=== PATIENT | female | born 1960 | race American Indian/Alaskan Native ===

== ENCOUNTER 2016-12-26 15:15 | Inpatient (IN) | payer MEDICAID, SELFPAY ==
[2016-12-26 15:16] VITALS: BMI 24.5
--- NOTE | 2016-12-26 16:00 | ED PDOC ---
HPI: Hypertension/Hypotension Time Seen by Provider: 12/26/16 15:23 Chief Complaint (Nursing): High Blood Pressure Chief Complaint (Provider): High Blood Pressure History Per: Patient History/Exam Limitations: no limitations Additional Complaint(s): 56 y/o female with a past medical history of hypertension, diabetes, hypercholesterolemia, liver disease, and chronic kidney disease who presents to the emergency department after she was sent from the clinic for elevated blood pressure. Reports having a constant, frontal, pressure-like headache since yesterday. Denies focal weakness, chest pain, shortness of breath, leg swelling , blurry vision, nausea, or vomiting. Of note, patient was suppose to start an additional hypertensive medication 2 weeks ago but did not start taking the medications because pharmacy never informed her that it was filled and ready for pick-up. When patient was reevaluated today at the clinic they told here her was hypertensive. PMD: [facility] [place], [place] Past Medical History Reviewed: Historical Data, Nursing Documentation, Vital Signs Vital Signs: Last Vital Signs Temp 96.9 F L 12/26/16 15:16 Pulse 78 12/26/16 15:33 Resp 16 12/26/16 15:16 BP 199/104 H 12/26/16 15:33 Pulse Ox 98 12/26/16 15:16 - Medical History PMH: Anemia, Diabetes, HTN, Hypercholesterolemia, Chronic Kidney Disease, TIA Denies: Hepatitis, HIV, Seizures, Sexually Transmitted Disease Other PMH: Liver diease - Family History Family History: States: Hypertension - Social History Current smoker - smoking cessation education provided: No Alcohol: None Drugs: Denies - Home Medications Home Medications: Ambulatory Orders Medication Instructions Recorded Clopidogrel [Plavix] 75 mg PO DAILY #30 tab 04/20/16 GlipiZIDE [Glucotrol] 10 mg PO DAILY #30 tab 04/20/16 Losartan [Cozaar] 100 mg PO DAILY #30 tab 04/20/16 Metoprolol Tartrate [Lopressor] 50 mg PO BID #60 tab 04/20/16 QUEtiapine [SEROquel] 200 mg PO HS #30 tab 04/20/16 Sertraline [Zoloft] 50 mg PO DAILY #30 tab 04/20/16 Simvastatin 20 mg PO HS #30 tablet 04/20/16 amLODIPine [Norvasc] 10 mg PO DAILY #30 tab 04/20/16 - Allergies Allergies/Adverse Reactions: Allergies Allergy/AdvReac Type Severity Reaction Status Date / Time No Known Allergies Allergy Verified 04/09/16 11:33 Review of Systems ROS Statement: Except As Marked, All Systems Reviewed And Found Negative (As per HPI otherwise negative) Eyes: Negative for: Vision Change (Blurry vision) Cardiovascular: Negative for: Chest Pain Respiratory: Negative for: Shortness of Breath Musculoskeletal: Negative for: Other (No leg swelling) Neurological: Positive for: Headache (Frontal region pressure-like). Negative for: Weakness (No focal weakness) Physical Exam - Reviewed Nursing Documentation Reviewed: Yes Vital Signs Reviewed: Yes - Physical Exam Appears: Positive for: Non-toxic, No Acute Distress Head Exam: Positive for: ATRAUMATIC, NORMOCEPHALIC Skin: Positive for: Warm, Dry Eye Exam: Positive for: EOMI, PERRL ENT: Negative for: Pharyngeal Erythema, Tonsillar Exudate Neck: Positive for: Painless ROM, Supple Cardiovascular/Chest: Positive for: Regular Rate, Rhythm, Chest Non Tender. Negative for: Murmur Respiratory: Positive for: Normal Breath Sounds. Negative for: Wheezing Gastrointestinal/Abdominal: Positive for: Soft. Negative for: Tenderness Back: Positive for: Normal Inspection. Negative for: Decreased ROM Extremity: Positive for: Normal ROM. Negative for: Deformity Lymphatic: Negative for: Adenopathy Neurologic/Psych: Positive for: Alert, Oriented (X3). Negative for: Motor/ Sensory Deficits - Laboratory Results Result Diagrams: 12/28/16 07:00 12/30/16 06:30 - ECG O2 Sat by Pulse Oximetry: 98 (RA) Pulse Ox Interpretation: Normal Medical Decision Making Medical Decision Making: Time: 1555 Initial impression: Hypertension differential includes renal disease, congestive heart failure (CHF), electrolyte abnormality, and accelerated hypertension Initial plan: --EKG --Chemistry and lab work ordered --Urine DIP --Head CT --Reevaluation [address] FINDINGS: HEMORRHAGE: No intracranial hemorrhage. BRAIN: Diffuse atrophy with prominence of the ventricles and sulci noted. No mass effect or edema. Mild scattered white matter hypodensities, which are nonspecific, but often seen with chronic microvascular ischemic disease. Hypodensity re-identified within the left cerebellum. Please note that MRI with diffusion imaging is more sensitive in the detection of acute ischemic event. VENTRICLES: No hydrocephalus. CALVARIUM: Unremarkable. PARANASAL SINUSES: Unremarkable as visualized. No significant inflammatory changes. MASTOID AIR CELLS: Unremarkable as visualized. No inflammatory changes. OTHER FINDINGS: None. IMPRESSION: Generalized atrophy. Nonspecific white matter changes. Left cerebellar hypodensity likely related to encephalomalacia. Persistently elevated BPs in ER. Pt to be hospitalized for uncontrolled hypertension with hypertensive encephalopathy (headache) and early organ dysfunction (renal insufficiency.) [facility] resident. Scribe Attestation: Documented by Vivi Hunt, acting as a scribe for Leatha Paris MD. Provider Scribe Attestation: All medical record entries made by the Scribe were at my direction and personally dictated by me. I have reviewed the chart and agree that the record accurately reflects my personal performance of the history, physical exam, medical decision making, and the department course for this patient. I have also personally directed, reviewed, and agree with the discharge instructions and disposition. Disposition - Clinical Impression Clinical Impression: CKD (chronic kidney disease), Hypertension Counseled Patient/Family Regarding: Studies Performed, Diagnosis - Disposition Disposition Time: 17:00 Condition: GUARDED - Pt Status Changed To: Hospital Disposition Of: Observation - POA Present On Arrival: None
[2016-12-26 16:34] LABS: BASO % 0.6 % (0.0-2.0); EOS # 0.2 K/uL (0.0-0.7); EOS % 2.7 % (0.0-4.0); HEMATOCRIT 24.7 % (34.0-47.0); LYMPH # 1.4 K/uL (1.0-4.3); LYMPH % 21.1 % (20.0-40.0); MEAN CELL VOLUME 86.7 fl (81.0-99.0); MEAN CORPUSCULAR HEMOGLOBIN 29.5 pg (27.0-31.0); MEAN PLATELET VOLUME 7.5 fl (7.2-11.7); MONO # 0.6 K/uL (0.0-0.8); MONO % 9.2 % (0.0-10.0); NEUT # 4.4 K/uL (1.8-7.0); NEUT % 66.4 % (50.0-75.0); NRBC % 0.1 % (0.0-0.0); PARTIAL THROMBOPLASTIN TIME 35.3 Seconds (25.6-37.1); RED CELL DISTRIBUTION WIDTH 14.6 % (11.5-14.5); WHITE BLOOD COUNT 6.6 K/uL (4.8-10.8)
[2016-12-26 16:39] LABS: ALB/GLOB RATIO 0.9 (1.0-2.1); BILIRUBIN,TOTAL 0.4 mg/dl (0.2-1.3); CALCIUM 8.9 mg/dL (8.4-10.2); MAGNESIUM 1.8 MG/DL (1.6-2.3); POTASSIUM 4.7 MMOL/L (3.6-5.0); TOTAL PROTEIN 7.6 G/DL (6.3-8.2)
[2016-12-26 16:50] LABS: TROPONIN I 0.015 ng/mL (0.00-0.120)
[2016-12-26 17:09] LABS: THYROID STIMULATING HORMONE 1.06 mIU/ML (0.46-4.68)
--- NOTE | 2016-12-26 17:13 | CT ---
PROCEDURE: CT HEAD WITHOUT CONTRAST. HISTORY: headache hypertension COMPARISON: Noncontrast head CT performed 04/09/16 TECHNIQUE: Axial computed tomography images were obtained through the head/brain without intravenous contrast. Radiation dose: Total exam DLP = 879.84 mGy-cm. This CT exam was performed using one or more of the following dose reduction techniques: Automated exposure control, adjustment of the mA and/or kV according to patient size, and/or use of iterative reconstruction technique. FINDINGS: HEMORRHAGE: No intracranial hemorrhage. BRAIN: Diffuse atrophy with prominence of the ventricles and sulci noted. No mass effect or edema. Mild scattered white matter hypodensities, which are nonspecific, but often seen with chronic microvascular ischemic disease. Hypodensity re-identified within the left cerebellum. Please note that MRI with diffusion imaging is more sensitive in the detection of acute ischemic event. VENTRICLES: No hydrocephalus. CALVARIUM: Unremarkable. PARANASAL SINUSES: Unremarkable as visualized. No significant inflammatory changes. MASTOID AIR CELLS: Unremarkable as visualized. No inflammatory changes. OTHER FINDINGS: None. IMPRESSION: Generalized atrophy. Nonspecific white matter changes. Left cerebellar hypodensity likely related to encephalomalacia.
[2016-12-26] MEDS ORDERED: Labetalol 5 mg/ml Inj 20ML IVP STA (17:16)
--- NOTE | 2016-12-26 18:19 | RAD ---
HISTORY: hypertension COMPARISON: Chest x-ray performed 06/16/15 TECHNIQUE: Chest, one view. FINDINGS: Examination limited by habitus and hypoinflation. LUNGS: Mild pulmonary venous congestion. No focal consolidation. Please note that chest x-ray has limited sensitivity for the detection of pulmonary masses. PLEURA: No significant pleural effusion identified. No definite pneumothorax . CARDIOVASCULAR: Borderline cardiomegaly. OSSEOUS STRUCTURES: Degenerative changes. VISUALIZED UPPER ABDOMEN: Unremarkable. OTHER FINDINGS: None. IMPRESSION: Examination limited by habitus. Mild pulmonary venous congestion. Borderline cardiomegaly.
--- NOTE | 2016-12-26 19:02 | CP.PCM.HP ---
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 BP at PMD's office was 175/100, and a repeat BP was found to be >200/100. Last week patient was started in Diltiazem 60 mg ER by PMD , but she states she has not been taking the new medication because never picked it up from the pharmacy. Patient states that the headaches started while she was in PCP's office waiting room, located in her forehead, bilateral, no radiating, 5/10, no associated with acute changes in her vision, slurred speech , numbness, tingling or weakness, Cp, SOB or other complains. PMD:Dr. Conner at [facility] PMHx: HTN, NIDDM, TIA, CKD meds: zoloft 100 mg, simvastatin 20 mg, clopidogrel 75 mg, glipizide 5 mg BID, olanzapine 10 mg, losartan 50 mg , Diltiazem ER 60 mg ( prescribed 1 week ago, but pt has not been taking) Allergies: NKDA SHx: C-sections X 2 Social: never smoker, no etoh, no drugs. Lives with her daughter. Daughter gives her all medications as prescribed. ED course: VS:BP: 214/113, afebrile, pulse: 72, RR: 16, O2 sat: 98 PE: Alert, oriented x 3 respiratory: scant fine diffuse rales in both lung bases, no wheezes or rhonchi CV: RRR, normal s1, s2, no murmur abd: soft, non tender, non distended ext: pitting edema 1 +, DP pulses present and B/L Labs:CBC: H/H: 8.4/24.7, Coag panel wnl, CMP: BUN/Cr: 18/1.7, GFR: 31, proBNP: 3390, TSH: wgenl, troponin I x 1 neg EKG:NSR, no acute ST -T wave changes CXR: pulmonary venous congestion and boderline cardiomegaly Head CT: generalized atrophy, no intracraneal hemorrhage Tx: Labetalol 10 mg IV once Present on Admission - Present on Admission Any Indicators Present on Admission: No History of DVT/PE: No History of Uncontrolled Diabetes: No Urinary Catheter: No Decubitus Ulcer Present: No Review of Systems - Review of Systems All systems: reviewed and no additional remarkable complaints except Past Patient History - Infectious Disease Hx of Infectious Diseases: None - Past Medical History & Family History Past Medical History?: Yes - Past Social History Alcohol: None Drugs: Denies - CARDIAC Hx Hypercholesterolemia: Yes Hx Hypertension: Yes - PULMONARY Hx Respiratory Disorders: No Hx Tuberculosis: No - NEUROLOGICAL Hx Seizures: No Hx Transient Ischemic Attacks (TIA): Yes - HEENT Hx HEENT Problems: No - RENAL Hx Chronic Kidney Disease: Yes - ENDOCRINE/METABOLIC Hx Endocrine Disorders: Yes Hx Diabetes Mellitus Type 2: Yes - HEMATOLOGICAL/ONCOLOGICAL Hx Anemia: Yes Hx Human Immunodeficiency Virus (HIV): No - INTEGUMENTARY Hx Dermatological Problems: No - MUSCULOSKELETAL/RHEUMATOLOGICAL Hx Musculoskeletal Disorders: No Hx Falls: No - GASTROINTESTINAL Hx Gastrointestinal Disorders: No - GENITOURINARY/GYNECOLOGICAL Hx Sexually Transmitted Disorders: No - PSYCHIATRIC Hx Psychophysiologic Disorder: Yes Hx Substance Use: No Other/Comment: History of psychosis with auditory hallucinations - SURGICAL HISTORY Hx Surgeries: Yes Hx Section: Yes (x2) Other/Comment: left arm surgery - ANESTHESIA Hx Anesthesia: Yes Hx Anesthesia Reactions: No Hx Malignant Hyperthermia: No Meds Allergies/Adverse Reactions: Allergies Allergy/AdvReac Type Severity Reaction Status Date / Time No Known Allergies Allergy Verified 04/09/16 11:33 Physical Exam - Constitutional Appears: Non-toxic, No Acute Distress - Eye Exam Eye Exam: Normal appearance - ENT Exam ENT Exam: Mucous Membranes Moist - Respiratory Exam Respiratory Exam: Rales (scant, diffuse, fine rales to auscultation of both lung bases), NORMAL BREATHING PATTERN. absent: Decreased Breath Sounds, Rhonchi , Wheezes, Respiratory Distress, Stridor - Cardiovascular Exam Cardiovascular Exam: REGULAR RHYTHM, RRR, +S1, +S2 - GI/Abdominal Exam GI & Abdominal Exam: Normal Bowel Sounds, Soft. absent: Guarding, Rebound, Rigid, Tenderness - Extremities Exam Extremities exam: Positive for: pedal edema (pitting 1 + edema in lower extremities). Negative for: calf tenderness - Back Exam Back exam: NORMAL INSPECTION. absent: CVA tenderness (L), CVA tenderness (R) - Neurological Exam Neurological exam: Alert, Oriented x3 - Psychiatric Exam Psychiatric exam: Normal Affect, Normal Mood - Skin Skin Exam: Dry, Intact, Normal Color Results - Vital Signs Recent Vital Signs: Last Vital Signs Temp 96.9 F L 12/26/16 15:16 Pulse 81 12/26/16 18:11 Resp 18 12/26/16 18:11 BP 192/99 H 12/26/16 18:11 Pulse Ox 100 12/26/16 18:11 - Labs Result Diagrams: 12/26/16 16:20 12/26/16 16:20 Labs: Laboratory Results - last 24 hr 12/26/16 12/26/16 12/26/16 16:20 16:20 16:20 WBC 6.6 RBC 2.85 L Hgb 8.4 L Hct 24.7 L MCV 86.7 MCH 29.5 MCHC 34.0 RDW 14.6 H Plt Count 316 MPV 7.5 Neut % (Auto) 66.4 Lymph % (Auto) 21.1 Lumpkin % (Auto) 9.2 Eos % (Auto) 2.7 Baso % (Auto) 0.6 Neut # 4.4 Lymph # 1.4 Lumpkin # 0.6 Eos # 0.2 Baso # 0.0 PT 10.4 INR 0.9 APTT 35.3 Sodium 144 Potassium 4.7 Chloride 112 H Carbon Dioxide 25 Anion Gap 12 BUN 18 H Creatinine 1.7 H Est GFR ( Amer) 38 Est GFR (Non-Af Amer) 31 Random Glucose 96 Calcium 8.9 Phosphorus 4.0 Magnesium 1.8 Total Bilirubin 0.4 AST 30 ALT 23 Alkaline Phosphatase 100 Troponin I 0.0150 NT-Pro-B Natriuret Pep 3390 H Total Protein 7.6 Albumin 3.7 Globulin 3.9 Albumin/Globulin Ratio 0.9 L TSH 3rd Generation 1.06 Assessment & Plan - Assessment and Plan (Free Text) Assessment: 56 y/o F with h/o HTN, NIDDM type 2, TIA being admitted for symptomatic uncontrolled Hypertension. Plan: Uncontrolled Hypertension -Telemetry -No adherent with antihypertensive treatment -s/p Labetalol 10 mg IV once at ED -careful lowering BP -will resume home losartan 50 mg tomorrow AM ( as per patient and her daughter, she took losartan today morning) -f/u BP -f/u UA -f/u BMP -f/u repeat EKG( patient was cold and shivering at the time of EKG at ED) -f/u Echo -Troponin I x 1 neg -EKG:NSR, no acute ST -T wave changes -CXR: pulmonary venous congestion and boderline cardiomegaly -Head CT: generalized atrophy, no intracraneal hemorrhage Lung Rales and peripheral edema -Boderline Cardiomegaly seen on CXR -Uncontrolled HTN -poss 2/2 mild CHF -pro-BNP 3390/elevated. But we do not have prior test for comparison -will give Furosemide 20 mg IV once -f/u echo -c/w losartan -will consider start CCB or B-serjio -Echo done on 12/2015 showed normal LV and normal EF -Cardio consult if needed Normocytic Anemia -Chronic -could be mixed of nutritional deficiency with anemia of chronic diseases -H/H: 8.4/24.7 -asymptomatic -rect count on 04/12/16 was mildly elevated, will repeat -f/u retic count, CBC AM -Colonoscopy done on 12/09/15 showed diverticulosis, 10 mm non-bleeding polyp in the sigmoid colon. Resected. Recommended repeat colonoscopy in 3 years -Wont do FOBT because recent colonoscopy NIDDM type 2 -last HgbA1C was on 12/19/16: 8.1 -c/w home Glipizide 5 mg PO BID -Random glucose in ED was 96 -heart healthy/ diabetic diet Chronic Kidney Disease -Stage 3 -GFR: 38 DVT prophylaxis -H/H : 8.4/24.7 will hold Heparin for prophylaxis No apparent evidence of active bleeding SCDs for tonight - Date & Time Date: 12/26/16 Time: 18:05
[2016-12-26 23:02] LABS: RBC URINE 10 /hpf (0-3); URINE BACTERIA RARE (<OCC); URINE BILIRUBIN NEGATIVE (NEGATIVE); URINE BLOOD SMALL (NEGATIVE); URINE COLOR COLORLESS (YELLOW); URINE GLUCOSE (UA) 50 mg/dL (Normal); URINE KETONE NEGATIVE (NEGATIVE); URINE LEUKOCYTE ESTERASE NEG Leu/uL (Negative); URINE PROTEIN 100 mg/dL (NEGATIVE); URINE UROBILINOGEN 0.2-1.0 mg/dL (0.2-1.0); WBC URINE < 1 /hpf (0-5)
[2016-12-27 07:55] LABS: HEMATOCRIT 23.5 % (34.0-47.0); MEAN CORPUSCULAR HEMOGLOBIN 29.8 pg (27.0-31.0); MEAN CORPUSCULAR HGB CONC 34.7 g/dL (33.0-37.0); RED CELL DISTRIBUTION WIDTH 14.7 % (11.5-14.5); WHITE BLOOD COUNT 6.5 K/uL (4.8-10.8)
[2016-12-27 08:05] LABS: CALCIUM 8.8 mg/dL (8.4-10.2); POTASSIUM 3.6 MMOL/L (3.6-5.0)
--- NOTE | 2016-12-27 09:14 | CP.PCM.PN ---
Subjective - Date & Time of Evaluation Date of Evaluation: 12/27/16 Time of Evaluation: 07:02 - Subjective Subjective: Eeler/Creole ID: Sally Skelton Patient seen and examined this morning at bedside lying comfortable on bed, no acute overnight overnight events. Patient reports still having frontal headache 5/10, no radiated, she states that she has this same headache when she doesnt sleep well, reports no good sleep last night due to noise in the floor. Denies nausea, vomiting, blurred vision, dizziness, fatigue, chest pain, sob, abdominal pain, tingling, numbness, weakness, slurred speech. No fever, diarrhea or constipation. Objective - Vital Signs/Intake and Output Vital Signs (last 24 hours): Temp Pulse Resp BP Pulse Ox 98.4 F 75 20 172/79 H 95 12/27/16 08:11 12/27/16 08:11 12/27/16 08:11 12/27/16 08:11 12/27/16 08:11 - Medications Medications: Current Medications Atorvastatin Calcium (Lipitor) 10 mg PO HS HARIS Clopidogrel Bisulfate (Plavix) 75 mg PO DAILY HARIS Furosemide (Lasix) 20 mg PO DAILY HARIS Glipizide (Glucotrol) 5 mg PO BID HARIS Losartan Potassium (Cozaar) 50 mg PO DAILY HARIS Losartan Potassium (Cozaar) 100 mg PO DAILY HARIS Olanzapine (Zyprexa) 10 mg PO DAILY HARIS Sertraline HCl (Zoloft) 100 mg PO DAILY HARIS - Labs Labs: 12/27/16 07:15 12/27/16 07:15 PT 10.4 Seconds (9.8-13.1) 12/26/16 16:20 INR 0.9 (0.9-1.2) 12/26/16 16:20 APTT 35.3 Seconds (25.6-37.1) 12/26/16 16:20 - Constitutional Appears: Well, No Acute Distress - Head Exam Head Exam: NORMAL INSPECTION - Eye Exam Eye Exam: EOMI, PERRL. absent: Nystagmus - Neck Exam Neck Exam: Full ROM Additional comments: No JVD, No carotids bruits. - Respiratory Exam Respiratory Exam: NORMAL BREATHING PATTERN. absent: Accessory Muscle Use Additional comments: Faint rales in L lung base. - Cardiovascular Exam Cardiovascular Exam: REGULAR RHYTHM, +S1, +S2 - GI/Abdominal Exam GI & Abdominal Exam: Soft, Normal Bowel Sounds. absent: Tenderness - Extremities Exam Extremities Exam: absent: Calf Tenderness Additional comments: DP pulses + b/l, no pedal edema - Neurological Exam Neurological Exam: Alert, Awake, CN II-XII Intact, Oriented x3 - Psychiatric Exam Psychiatric exam: Normal Affect - Skin Skin Exam: Dry, Intact, Warm Assessment and Plan - Assessment and Plan (Free Text) Assessment: 56 yo F with PMH of HTN, NIDDM type 2, TIA and CKD is admitted for symptomatic uncontrolled Hypertension. Plan: Uncontrolled Hypertension -Patient is on telemetry -Likely secondary hypertension due to creatinine increase more than 30% after ARB administration -No adherent with antihypertensive treatment -Stop Lozartan due to creatinine increase more than 30% -Start amlodipine 5mg PO daily -UA no proteinuria -BMP wnl -Troponin I x 1 neg -repeat EKG -f/u Echo -Renal duplex US ordered -EKG: NSR, no acute ST -T wave changes -CXR: pulmonary venous congestion and boderline cardiomegaly -Head CT: generalized atrophy, no intracraneal hemorrhage Lung Rales and peripheral edema, r/o CHF -Boderline Cardiomegaly seen on CXR -Uncontrolled HTN -pro-BNP 3390/elevated. (No prior test for comparison) -Furosemide 20 mg PO daily -start amlodipine 5mg PO daily -Echo done on 12/2015 showed normal LV and normal EF -f/u echo -Cardio consult if needed Normocytic Anemia -Chronic -unknown etiology -H/H: 8.1/23.5 -asymptomatic -rect count on 04/12/16 was mildly elevated -retic count today wnl -Colonoscopy done on 12/09/15 showed diverticulosis, 10 mm non-bleeding polyp in the sigmoid colon. NIDDM type 2 -last HgbA1C was on 12/19/16- 8.1 -c/w Glipizide 5 mg PO BID -Random glucose 149 -Start insulin sliding scale -heart healthy/ diabetic diet Acute Kidney Injury -BUN/Cr 23/2.3 -GFR: 38 -Nephrology consult appreciated DVT prophylaxis -H/H : 8.4/24.7 -will hold Heparin for prophylaxis -No apparent evidence of active bleeding -SCDs
[2016-12-27] MEDS ORDERED: Dextrose 50% SYRINGE Inj (50 ml) IV PRN (12:28)
[2016-12-27] MEDS ORDERED: Glucagon Recombinant 1 mg Inj IM PRN (12:28)
[2016-12-27] MEDS: Insulin Regular 100 units/ml SC SCH ×2 (16:53→21:42)
--- NOTE | 2016-12-27 17:07 | CARD ---
APPROVED REPORT EXAM: Two-dimensional and M-mode echocardiogram with Doppler and color Doppler. Other Information Quality : GoodRhythm : NSR INDICATION Cardiomyopathy 2D DIMENSIONS IVSd1.35 (0.7-1.1cm)LVDd4.33 (3.9-5.9cm) LVOT Diameter2.12 (1.8-2.4cm)PWd1.43 (0.7-1.1cm) IVSs1.21 (0.8-1.2cm)LVDs3.86 (2.5-4.0cm) FS (%) 10.7 %PWs1.33 (0.8-1.2cm) LVEF (%)45.0 (>50%) M-Mode DIMENSIONS Left Atrium (MM)3.85 (2.5-4.0cm)IVSd1.15 (0.7-1.1cm) Aortic Root2.79 (2.2-3.7cm)LVDd4.94 (4.0-5.6cm) Aortic Cusp Exc.1.97 (1.5-2.0cm)PWd1.21 (0.7-1.1cm) IVSs1.47 cmFS (%) 26 % LVDs3.65 (2.0-3.8cm)PWs1.56 cm Mitral Valve MV E Esjfvpab96.0cm/sMV DECEL [id number] A Rrycdwwa484.5cm/s MV VYK63sbP/A ratio0.8MVA (PHT)4.31cm2 TDI Lateral E' Peak V5.95cm/sMedial E' Peak V3.99cm/sE/Lateral E'16.6 E/Medial E'24.8 Pulmonary Valve PV Peak Eblzrult34.2cm/s LEFT VENTRICLE The left ventricle is normal size. There is borderline concentric left ventricular hypertrophy. The systolic function is mildly impaired. There is mild global hypokinesis of the left ventricle. Transmitral Doppler flow pattern is Grade I-abnormal relaxation pattern. RIGHT VENTRICLE The right ventricle is normal size. There is normal right ventricular wall thickness. The right ventricular systolic function is normal. ATRIA The left atrium size is normal. The right atrium size is normal. AORTIC VALVE The aortic valve is normal in structure. No aortic regurgitation is present. There is no aortic valvular stenosis. MITRAL VALVE The mitral valve is mildly thickened. There is no mitral valve stenosis. There is no mitral valve regurgitation noted. TRICUSPID VALVE The tricuspid valve is normal in structure. There is no tricuspid valve regurgitation noted. PULMONIC VALVE The pulmonary valve is normal in structure. There is no pulmonic valvular regurgitation. GREAT VESSELS The aortic root is normal in size. The IVC is normal in size and collapses >50% with inspiration. PERICARDIAL EFFUSION The pericardium appears normal. <Conclusion> The left ventricle is normal size. There is borderline concentric left ventricular hypertrophy. The systolic function is mildly impaired. There is mild global hypokinesis of the left ventricle. Transmitral Doppler flow pattern is Grade I-abnormal relaxation pattern.
--- NOTE | 2016-12-27 18:10 | CARD ---
APPROVED REPORT EKG Measurement Heart [id number] <Conclusion> Normal sinus rhythm Normal ECG
[2016-12-28] MEDS: Insulin Regular 100 units/ml SC SCH ×4 (07:02→23:21)
[2016-12-28 07:43] LABS: HEMATOCRIT 23.8 % (34.0-47.0); MEAN CELL VOLUME 85.5 fl (81.0-99.0); MEAN CORPUSCULAR HEMOGLOBIN 29.8 pg (27.0-31.0); MEAN CORPUSCULAR HGB CONC 34.9 g/dL (33.0-37.0); RED CELL DISTRIBUTION WIDTH 14.8 % (11.5-14.5); WHITE BLOOD COUNT 6.1 K/uL (4.8-10.8)
[2016-12-28 07:52] LABS: CALCIUM 8.7 mg/dL (8.4-10.2); POTASSIUM 3.7 MMOL/L (3.6-5.0)
--- NOTE | 2016-12-28 09:10 | CP.PCM.CON ---
History of Present Illness - History of Present Illness History of Present Illness: This patient who is 56 years old I was called to see her for abnormal kidney function. Patient has long history of hypertension and she was admitted was high blood pressure she required to be given some medication in the emergency room. And then noted the rising BUN/creatinine slightly. However today serum creatinine started to come down. Patient also reported history of diabetes mellitus. And she is noncompliance she does not take medications. PMHx: HTN, NIDDM, TIA, CKD meds: zoloft 100 mg, simvastatin 20 mg, clopidogrel 75 mg, glipizide 5 mg BID, olanzapine 10 mg, losartan 50 mg , Diltiazem ER 60 mg ( prescribed 1 week ago, but pt has not been taking) Allergies: NKDA SHx: C-sections X 2 Social: never smoker, no etoh, no drugs. Lives with her daughter. Daughter gives her all medications as prescribed. Review of Systems - Constitutional Constitutional: absent: Chills, Excessive Sweating - EENT Eyes: As Per HPI - Cardiovascular Cardiovascular: absent: Chest Pain, Dyspnea, Leg Edema, Leg Ulcers - Respiratory Respiratory: absent: Cough, Dyspnea, Hemoptysis - Gastrointestinal Gastrointestinal: absent: Abdominal Pain - Genitourinary Genitourinary: absent: Nocturia - Musculoskeletal Musculoskeletal: absent: Arthralgias, Back Pain - Neurological Neurological: absent: As Per HPI, Abnormal Gait, Abnormal Hearing, Abnormal Movements, Abnormal Speech, Behavioral Changes, Burning Sensations, Confusion, Convulsions, Disequilibrium, Dizziness, Numbness, Focal Weakness, Frequent Falls , Headaches, Lack of Coordination, Loss of Vision, Memory Loss, Paresthesias, Radicular Pain, Restless Legs, Sensory Deficit, Syncope, Tingling, Tremor, Vertigo, Weakness, Other Visual Disturbances, Other - Psychiatric Psychiatric: As Per HPI Past Patient History - Infectious Disease Hx of Infectious Diseases: None - Past Medical History & Family History Past Medical History?: Yes - Past Social History Alcohol: None Drugs: Denies - CARDIAC Hx Hypercholesterolemia: Yes Hx Hypertension: Yes - PULMONARY Hx Respiratory Disorders: No Hx Tuberculosis: No - NEUROLOGICAL Hx Seizures: No Hx Transient Ischemic Attacks (TIA): Yes - HEENT Hx HEENT Problems: No - RENAL Hx Chronic Kidney Disease: Yes - ENDOCRINE/METABOLIC Hx Endocrine Disorders: Yes Hx Diabetes Mellitus Type 2: Yes - HEMATOLOGICAL/ONCOLOGICAL Hx Anemia: Yes Hx Human Immunodeficiency Virus (HIV): No - INTEGUMENTARY Hx Dermatological Problems: No - MUSCULOSKELETAL/RHEUMATOLOGICAL Hx Musculoskeletal Disorders: No Hx Falls: No - GASTROINTESTINAL Hx Gastrointestinal Disorders: No - GENITOURINARY/GYNECOLOGICAL Hx Sexually Transmitted Disorders: No - PSYCHIATRIC Hx Psychophysiologic Disorder: Yes Hx Substance Use: No Other/Comment: History of psychosis with auditory hallucinations - SURGICAL HISTORY Hx Surgeries: Yes Hx Section: Yes (x2) Other/Comment: left arm surgery - ANESTHESIA Hx Anesthesia: Yes Hx Anesthesia Reactions: No Hx Malignant Hyperthermia: No Meds Allergies/Adverse Reactions: Allergies Allergy/AdvReac Type Severity Reaction Status Date / Time No Known Allergies Allergy Verified 04/09/16 11:33 - Medications Medications: Current Medications Acetaminophen (Tylenol 325mg Tab) 650 mg PO Q6 PRN PRN Reason: Pain, moderate (4-7) Amlodipine Besylate (Norvasc) 5 mg PO DAILY [facility] Last Admin: 12/27/16 10:54 Dose: 5 mg Atorvastatin Calcium (Lipitor) 10 mg PO HS [facility] Last Admin: 12/27/16 21:42 Dose: 10 mg Clopidogrel Bisulfate (Plavix) 75 mg PO DAILY [facility] Last Admin: 12/27/16 10:51 Dose: 75 mg Dextrose (Dextrose 50% Inj) 0 ml IV STAT PRN; Protocol PRN Reason: Hypoglycemia Protocol Dextrose (Glutose 15) 0 gm PO ONCE PRN; Protocol PRN Reason: Hypoglycemia Protocol Furosemide (Lasix) 20 mg PO DAILY [facility] Last Admin: 12/27/16 10:51 Dose: 20 mg Glipizide (Glucotrol) 5 mg PO BID [facility] Last Admin: 12/27/16 16:51 Dose: 5 mg Glucagon (Glucagen Diagnostic Kit) 0 mg IM STAT PRN; Protocol PRN Reason: Hypoglycemia Protocol Hydralazine HCl (Apresoline) 10 mg PO QID [facility] Last Admin: 12/27/16 21:43 Dose: 10 mg Insulin Human Regular (Humulin R) 0 units SC [facility] PRN Reason: Protocol Last Admin: 12/28/16 07:02 Dose: Not Given Olanzapine (Zyprexa) 10 mg PO DAILY [facility] Last Admin: 12/27/16 10:52 Dose: 10 mg Sertraline HCl (Zoloft) 100 mg PO DAILY [facility] Last Admin: 12/27/16 10:52 Dose: 100 mg Physical Exam - Constitutional Appears: No Acute Distress - ENT Exam ENT Exam: Mucous Membranes Moist - Respiratory Exam Respiratory Exam: NORMAL BREATHING PATTERN. absent: Chest Wall Tenderness - Cardiovascular Exam Cardiovascular Exam: REGULAR RHYTHM. absent: Rubs - GI/Abdominal Exam GI & Abdominal Exam: Normal Bowel Sounds - Extremities Exam Extremities exam: Negative for: calf tenderness, pedal edema - Back Exam Back exam: absent: CVA tenderness (L), CVA tenderness (R) - Neurological Exam Neurological exam: Alert - Psychiatric Exam Psychiatric exam: Normal Affect Results - Vital Signs Recent Vital Signs: Last Vital Signs Temp 98.6 F 12/28/16 08:00 Pulse 74 12/28/16 08:00 Resp 20 12/28/16 08:00 BP 162/78 H 12/28/16 08:00 Pulse Ox 94 L 12/28/16 08:00 - Labs Result Diagrams: 12/28/16 07:00 12/28/16 07:00 Labs: Laboratory Results - last 24 hr 12/27/16 12/27/16 12/27/16 10:59 16:14 21:30 WBC RBC Hgb Hct MCV MCH MCHC RDW Plt Count Sodium Potassium Chloride Carbon Dioxide Anion Gap BUN Creatinine Est GFR ( Amer) Est GFR (Non-Af Amer) POC Glucose (mg/dL) 386 H 186 H 83 Random Glucose Calcium Ur Random Sodium Ur Random Potassium 12/28/16 12/28/16 12/28/16 05:53 07:00 07:00 WBC 6.1 RBC 2.79 L Hgb 8.3 L Hct 23.8 L MCV 85.5 MCH 29.8 MCHC 34.9 RDW 14.8 H Plt Count 323 Sodium 140 Potassium 3.7 Chloride 106 Carbon Dioxide 28 Anion Gap 10 BUN 26 H Creatinine 2.2 H Est GFR ( Amer) 28 Est GFR (Non-Af Amer) 23 POC Glucose (mg/dL) 133 H Random Glucose 127 H Calcium 8.7 Ur Random Sodium Ur Random Potassium 12/28/16 07:27 WBC RBC Hgb Hct MCV MCH MCHC RDW Plt Count Sodium Potassium Chloride Carbon Dioxide Anion Gap BUN Creatinine Est GFR ( Amer) Est GFR (Non-Af Amer) POC Glucose (mg/dL) Random Glucose Calcium Ur Random Sodium 92 Ur Random Potassium 23.7 Assessment & Plan (1) Acute kidney injury superimposed on chronic kidney disease Assessment and Plan: Patient appeared to have underlying chronic kidney disease stage III perhaps with acute kidney injury superimposed related to the hemodynamically changes with high blood pressure. Although patient also diabetic and may be element in her for a chronic kidney disease although patient does not appear to have significant proteinuria. My recommendation Ultrasound of the kidney pending the report. Spot urine for protein to creatinine ratio. Serum phosphorus and PTH level. Continue treatment with antihypertensive medication may need adjustment if needed. Renal diet including 50 g protein 2 g sodium and 2 g potassium. Status: Acute (2) Hypertension Status: Acute
--- NOTE | 2016-12-28 10:59 | US ---
Indication: Evaluate for renal vascular disease, AK i.e., hypertension Technique: Real-time duplex ultrasound of the arterial and venous flow of the kidneys with color Doppler flow and spectral waveform analysis Comparison: None available. Findings: Examination limited by habitus. The right kidney measures approximately 11.3 x 3.2 x 3.7 cm. The left kidney measures approximately 10.3 x 4.1 x 4.0 cm. Peak systolic velocities: Aorta 83 cm/second Proximal right renal artery 71 cm/second Mid right renal artery 80 cm/second Distal right renal artery 100 cm/second Proximal left renal artery 89 cm/second Mid left renal artery 68 cm/second Distal left renal artery 65 cm/second Right renal artery to aorta ratio: 1.2 Left renal artery to aorta ratio: 1.1 Impression: No acute findings identified. Preliminary impression was provided by virtual radiologic.
--- NOTE | 2016-12-28 13:14 | CP.PCM.PN ---
Subjective - Date & Time of Evaluation Date of Evaluation: 12/28/16 Time of Evaluation: 06:45 - Subjective Subjective: Carpenter Prototype/Creole ID: [id number] Patient seen and examined this morning at bedside lying comfortable on bed, no acute overnight events. Reports feeling well, states that was able to slept fine during the night. At this time she denies headache, no nausea, vomiting, blurred vision, dizziness, fatigue, chest pain, sob, abdominal pain, tingling, numbness, weakness, slurred speech. No fever, diarrhea or constipation. Objective - Vital Signs/Intake and Output Vital Signs (last 24 hours): Temp Pulse Resp BP Pulse Ox 98.0 F 73 20 129/75 94 L 12/28/16 12:31 12/28/16 12:31 12/28/16 12:31 12/28/16 12:31 12/28/16 12:31 - Medications Medications: Current Medications Acetaminophen (Tylenol 325mg Tab) 650 mg PO Q6 PRN PRN Reason: Pain, moderate (4-7) Amlodipine Besylate (Norvasc) 5 mg PO DAILY [facility] Last Admin: 12/28/16 09:41 Dose: 5 mg Atorvastatin Calcium (Lipitor) 10 mg PO HS [facility] Last Admin: 12/27/16 21:42 Dose: 10 mg Clopidogrel Bisulfate (Plavix) 75 mg PO DAILY [facility] Last Admin: 12/28/16 09:41 Dose: 75 mg Dextrose (Dextrose 50% Inj) 0 ml IV STAT PRN; Protocol PRN Reason: Hypoglycemia Protocol Dextrose (Glutose 15) 0 gm PO ONCE PRN; Protocol PRN Reason: Hypoglycemia Protocol Furosemide (Lasix) 20 mg PO DAILY [facility] Last Admin: 12/28/16 09:40 Dose: 20 mg Glipizide (Glucotrol) 5 mg PO BID [facility] Last Admin: 12/28/16 09:39 Dose: 5 mg Glucagon (Glucagen Diagnostic Kit) 0 mg IM STAT PRN; Protocol PRN Reason: Hypoglycemia Protocol Heparin Sodium (Porcine) (Heparin) 5,000 units SC Q12 [facility] PRN Reason: Protocol Hydralazine HCl (Apresoline) 10 mg PO QID [facility] Last Admin: 12/28/16 12:23 Dose: 10 mg Insulin Human Regular (Humulin R) 0 units SC ACHS [facility] PRN Reason: Protocol Last Admin: 12/28/16 07:02 Dose: Not Given Olanzapine (Zyprexa) 10 mg PO DAILY [facility] Last Admin: 12/28/16 09:41 Dose: 10 mg Sertraline HCl (Zoloft) 100 mg PO DAILY [facility] Last Admin: 12/28/16 09:41 Dose: 100 mg - Labs Labs: 12/28/16 07:00 12/28/16 07:00 PT 10.4 Seconds (9.8-13.1) 12/26/16 16:20 INR 0.9 (0.9-1.2) 12/26/16 16:20 APTT 35.3 Seconds (25.6-37.1) 12/26/16 16:20 - Constitutional Appears: Well, No Acute Distress - Head Exam Head Exam: NORMAL INSPECTION - Eye Exam Eye Exam: EOMI, PERRL. absent: Nystagmus - ENT Exam ENT Exam: Mucous Membranes Moist - Respiratory Exam Respiratory Exam: Clear to Ausculation Bilateral. absent: Rales, Rhonchi, Wheezes - Cardiovascular Exam Cardiovascular Exam: REGULAR RHYTHM, +S1, +S2 - GI/Abdominal Exam GI & Abdominal Exam: Soft, Normal Bowel Sounds. absent: Distended, Tenderness - Extremities Exam Extremities Exam: absent: Calf Tenderness, Pedal Edema - Neurological Exam Neurological Exam: Alert, Awake, CN II-XII Intact, Oriented x3 - Psychiatric Exam Psychiatric exam: Normal Mood - Skin Skin Exam: Dry, Intact, Warm Assessment and Plan - Assessment and Plan (Free Text) Assessment: 56 yo F with PMH of HTN, NIDDM type 2, TIA and CKD is admitted for symptomatic uncontrolled Hypertension and Acute kidney injury. Plan: Uncontrolled Hypertension -Patient is on telemetry -No adherent with antihypertensive treatment -Likely secondary hypertension due to creatinine increase more than 30% after ARB administration -Stop Lozartan due to creatinine increase more than 30% -Start amlodipine 5mg PO daily -Start Hydralazine 10mg QID -Renal duplex US ordered: no acute findings found -EKG: NSR, no acute ST -T wave changes -Head CT: generalized atrophy, no intracraneal hemorrhage Mild fluid overload likely secondary to Mild CHF -Boderline Cardiomegaly seen on CXR -Uncontrolled HTN -pro-BNP 3390/elevated. (No prior test for comparison) -Furosemide 20 mg PO daily -amlodipine 5mg PO daily -Echo done on 12/2015 showed normal LV and normal EF -Echo 12/27: LV normal size, mild impairment on systolic function, mild global hypokinesis of the LV, LVEF 45% Normocytic Anemia -Chronic -unknown etiology -H/H: 8.1/23.5 -asymptomatic -retic count wnl -Colonoscopy done on 12/09/15 showed diverticulosis, 10 mm non-bleeding polyp in the sigmoid colon. -REGINALDO, Complement ordered NIDDM type 2 -last HgbA1C was on 12/19/16- 8.1 -c/w Glipizide 5 mg PO BID -Random glucose 149 -Pt on insulin sliding scale -heart healthy/ diabetic diet Acute Kidney Injury -BUN/Cr 26/2.2 -GFR: 38 -Nephrology consult appreciated by Dr Lovelace -Urine protein/creatinine ratio ordered, phosphorus serum level, PTH. DVT prophylaxis -Heparin 5000 units SQ Q12h -SCDs
[2016-12-28 15:25] LABS: MAGNESIUM 1.7 MG/DL (1.6-2.3); PHOSPHOROUS 5.4 mg/dl (2.5-4.5)
[2016-12-29] MEDS: Insulin Regular 100 units/ml SC SCH ×4 (08:39→22:35)
[2016-12-29 09:38] LABS: CALCIUM 8.8 mg/dL (8.4-10.2)
--- NOTE | 2016-12-29 11:49 | CP.PCM.PN ---
Subjective - Date & Time of Evaluation Date of Evaluation: 12/29/16 Time of Evaluation: 11:46 - Subjective Subjective: Patient appeared to be comfortable. No acute distress eating well. Objective - Vital Signs/Intake and Output Vital Signs (last 24 hours): Temp Pulse Resp BP Pulse Ox 98.2 F 79 20 161/87 H 95 12/29/16 08:16 12/29/16 09:00 12/29/16 08:16 12/29/16 08:40 12/29/16 08:16 - Medications Medications: Current Medications Acetaminophen (Tylenol 325mg Tab) 650 mg PO Q6 PRN PRN Reason: Pain, moderate (4-7) Amlodipine Besylate (Norvasc) 10 mg PO DAILY [facility] Last Admin: 12/29/16 08:40 Dose: 10 mg Atorvastatin Calcium (Lipitor) 10 mg PO HS [facility] Last Admin: 12/28/16 21:36 Dose: 10 mg Clonidine HCl (Catapres) 0.1 mg PO BID [facility] Clopidogrel Bisulfate (Plavix) 75 mg PO DAILY [facility] Last Admin: 12/29/16 08:41 Dose: 75 mg Dextrose (Dextrose 50% Inj) 0 ml IV STAT PRN; Protocol PRN Reason: Hypoglycemia Protocol Dextrose (Glutose 15) 0 gm PO ONCE PRN; Protocol PRN Reason: Hypoglycemia Protocol Furosemide (Lasix) 20 mg PO DAILY [facility] Last Admin: 12/29/16 08:39 Dose: 20 mg Glipizide (Glucotrol) 5 mg PO BID [facility] Last Admin: 12/29/16 08:37 Dose: 5 mg Glucagon (Glucagen Diagnostic Kit) 0 mg IM STAT PRN; Protocol PRN Reason: Hypoglycemia Protocol Heparin Sodium (Porcine) (Heparin) 5,000 units SC Q12 [facility] PRN Reason: Protocol Last Admin: 12/29/16 08:38 Dose: 5,000 units Hydralazine HCl (Apresoline) 10 mg PO Q8H [facility] Last Admin: 12/29/16 06:07 Dose: 10 mg Insulin Human Regular (Humulin R) 0 units SC ACHS [facility] PRN Reason: Protocol Last Admin: 12/29/16 08:39 Dose: Not Given Olanzapine (Zyprexa) 10 mg PO DAILY [facility] Last Admin: 12/29/16 08:41 Dose: 10 mg Sertraline HCl (Zoloft) 100 mg PO DAILY [facility] Last Admin: 12/29/16 08:41 Dose: 100 mg - Labs Labs: 12/28/16 07:00 12/29/16 09:26 PT 10.4 Seconds (9.8-13.1) 12/26/16 16:20 INR 0.9 (0.9-1.2) 12/26/16 16:20 APTT 35.3 Seconds (25.6-37.1) 12/26/16 16:20 - Constitutional Appears: No Acute Distress - ENT Exam ENT Exam: Mucous Membranes Moist - Respiratory Exam Respiratory Exam: NORMAL BREATHING PATTERN. absent: Chest Wall Tenderness - Cardiovascular Exam Cardiovascular Exam: REGULAR RHYTHM. absent: JVD, Rubs - GI/Abdominal Exam GI & Abdominal Exam: Soft, Normal Bowel Sounds - Extremities Exam Extremities Exam: absent: Calf Tenderness - Back Exam Back Exam: absent: CVA tenderness (L), CVA tenderness (R) - Neurological Exam Neurological Exam: Alert Assessment and Plan (1) Acute kidney injury superimposed on chronic kidney disease Assessment & Plan: Most likely acute kidney injury superimposed on chronic kidney disease. Serum creatinine has gone up again 2.7. Blood pressure is still elevated. Add clonidine 0.1 mg twice a day. Protein to creatinine ratio showed about 6.0 GM protein consistent with nephrotic syndrome proteinuria. Perhaps related to diabetic nephropathy. So patient may have chronic kidney disease stage III and underlying related to diabetes and hypertension and got worse because of the hemodynamic changes up and down in the blood pressure. PTH pending Hyperphosphatemia add phosphorus binder. Calcium acetate Status: Acute (2) Hypertension Status: Acute
--- NOTE | 2016-12-29 13:15 | CP.PCM.PN ---
Subjective - Date & Time of Evaluation Date of Evaluation: 12/29/16 Time of Evaluation: 06:59 - Subjective Subjective: Patient seen and examined this morning sitting on chair, no acute overnight events reported. Patient reports feeling well today. She denies headache, no nausea, vomiting, blurred vision, dizziness, fatigue, chest pain, sob, abdominal pain, tingling, numbness, weakness, slurred speech. No fever, diarrhea or constipation. Objective - Vital Signs/Intake and Output Vital Signs (last 24 hours): Temp Pulse Resp BP Pulse Ox 98.2 F 79 20 161/87 H 95 12/29/16 08:16 12/29/16 09:00 12/29/16 08:16 12/29/16 08:40 12/29/16 08:16 - Medications Medications: Current Medications Acetaminophen (Tylenol 325mg Tab) 650 mg PO Q6 PRN PRN Reason: Pain, moderate (4-7) Amlodipine Besylate (Norvasc) 10 mg PO DAILY [facility] Last Admin: 12/29/16 08:40 Dose: 10 mg Atorvastatin Calcium (Lipitor) 10 mg PO HS [facility] Last Admin: 12/28/16 21:36 Dose: 10 mg Clonidine HCl (Catapres) 0.1 mg PO BID [facility] Clopidogrel Bisulfate (Plavix) 75 mg PO DAILY [facility] Last Admin: 12/29/16 08:41 Dose: 75 mg Dextrose (Dextrose 50% Inj) 0 ml IV STAT PRN; Protocol PRN Reason: Hypoglycemia Protocol Dextrose (Glutose 15) 0 gm PO ONCE PRN; Protocol PRN Reason: Hypoglycemia Protocol Furosemide (Lasix) 20 mg PO DAILY [facility] Last Admin: 12/29/16 08:39 Dose: 20 mg Glipizide (Glucotrol) 5 mg PO BID [facility] Last Admin: 12/29/16 08:37 Dose: 5 mg Glucagon (Glucagen Diagnostic Kit) 0 mg IM STAT PRN; Protocol PRN Reason: Hypoglycemia Protocol Heparin Sodium (Porcine) (Heparin) 5,000 units SC Q12 [facility] PRN Reason: Protocol Last Admin: 12/29/16 08:38 Dose: 5,000 units Hydralazine HCl (Apresoline) 10 mg PO Q8H [facility] Last Admin: 12/29/16 06:07 Dose: 10 mg Insulin Human Regular (Humulin R) 0 units SC ACHS [facility] PRN Reason: Protocol Last Admin: 12/29/16 08:39 Dose: Not Given Olanzapine (Zyprexa) 10 mg PO DAILY [facility] Last Admin: 12/29/16 08:41 Dose: 10 mg Sertraline HCl (Zoloft) 100 mg PO DAILY [facility] Last Admin: 12/29/16 08:41 Dose: 100 mg - Labs Labs: 12/28/16 07:00 12/29/16 09:26 PT 10.4 Seconds (9.8-13.1) 12/26/16 16:20 INR 0.9 (0.9-1.2) 12/26/16 16:20 APTT 35.3 Seconds (25.6-37.1) 12/26/16 16:20 - Constitutional Appears: Well, No Acute Distress - Head Exam Head Exam: NORMAL INSPECTION - Eye Exam Eye Exam: EOMI, PERRL. absent: Nystagmus - Respiratory Exam Respiratory Exam: Clear to Ausculation Bilateral. absent: Rales, Rhonchi, Wheezes - Cardiovascular Exam Cardiovascular Exam: REGULAR RHYTHM, +S1, +S2 - GI/Abdominal Exam GI & Abdominal Exam: Soft, Normal Bowel Sounds. absent: Distended, Tenderness - Extremities Exam Extremities Exam: absent: Calf Tenderness - Neurological Exam Neurological Exam: Alert, Awake, Oriented x3 - Psychiatric Exam Psychiatric exam: Normal Mood - Skin Skin Exam: Dry, Intact, Warm Assessment and Plan - Assessment and Plan (Free Text) Assessment: 56 yo F with PMH of HTN, NIDDM type 2, TIA and CKD is admitted for symptomatic uncontrolled Hypertension and Acute on chronic kidney injury. Plan: Uncontrolled Hypertension -Patient continue in telemetry -h/o no adherence with antihypertensive treatment -Likely secondary hypertension due to creatinine increase more than 30% after ARB administration -Stop Lozartan due to creatinine increase more than 30% -c/w amlodipine 5mg PO daily -c/w Hydralazine 10mg QID -Blood pressure still elevated -Start clonidine 0.1mg PO BID as per Dr Lovelace recommendations. -Renal duplex US ordered: no acute findings found -EKG: NSR, no acute ST -T wave changes -Head CT: generalized atrophy, no intracraneal hemorrhage Acute Kidney Injury on chronic kidney disease -BUN/Cr 35/2.5 -GFR: 38 -Nephrology consult appreciated by Dr Lovelace -Blood pressure is still elevated. Add clonidine 0.1 mg twice a day. -Protein to creatinine ratio showed about 6.0 GM protein consistent with nephrotic syndrome proteinuria. Perhaps related to diabetic nephropathy -So patient may have chronic kidney disease stage III and underlying related to diabetes and hypertension and got worse because of the hemodynamic changes up and down in the blood pressure. -Hyperphosphatemia add phosphorus binder. Calcium acetate. -PTH pending -UA ordered -F/U BMP Mild fluid overload likely secondary to Mild CHF -Boderline Cardiomegaly seen on CXR -h/o uncontrolled HTN -pro-BNP 3390/elevated. (No prior test for comparison) -Furosemide 20 mg PO daily -amlodipine 10mg PO daily -Echo done on 12/2015 showed normal LV and normal EF -Echo 12/27: LV normal size, mild impairment on systolic function, mild global hypokinesis of the LV, LVEF 45% Normocytic Anemia -Chronic -unknown etiology -H/H: 8.1/23.5 -asymptomatic -retic count wnl -Colonoscopy done on 12/09/15 showed diverticulosis, 10 mm non-bleeding polyp in the sigmoid colon. -REGINALDO pending -complement wnl NIDDM type 2 -last HgbA1C was on 12/19/16- 8.1 -c/w Glipizide 5 mg PO BID -glucose 105 -Pt on low insulin sliding scale -heart healthy/ diabetic diet DVT prophylaxis -Heparin 5000 units SQ Q12h -SCDs
[2016-12-29 15:19] LABS: URINE BILIRUBIN NEGATIVE (NEGATIVE); URINE BLOOD SMALL (NEGATIVE); URINE COLOR STRAW (YELLOW); URINE GLUCOSE (UA) 50 mg/dL (Normal); URINE KETONE NEGATIVE (NEGATIVE); URINE LEUKOCYTE ESTERASE NEG Leu/uL (Negative); URINE PROTEIN 100 mg/dL (NEGATIVE); URINE UROBILINOGEN 0.2-1.0 mg/dL (0.2-1.0)
[2016-12-29 15:24] LABS: CREATININE, RANDOM URINE 42.4 mg/dL
[2016-12-29 15:27] LABS: RBC URINE 3 /hpf (0-3); WBC URINE 2 /hpf (0-5)
[2016-12-30] MEDS: Insulin Regular 100 units/ml SC SCH ×4 (06:51→22:00)
[2016-12-30 07:53] LABS: CALCIUM 8.9 mg/dL (8.4-10.2); POTASSIUM 4.3 MMOL/L (3.6-5.0)
--- NOTE | 2016-12-30 13:59 | CP.PCM.PN ---
Subjective - Date & Time of Evaluation Date of Evaluation: 12/30/16 Time of Evaluation: 12:00 - Subjective Subjective: Patient appears comfortably sleeping in bed. She is easily arousible and is in no acute distress. 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 Patient denies headache, visual disturbances, chest pain, sob, abdominal pain, nausea or vomiting. She has been ambulating without dizziness and reports no difficulty with urination. Objective - Vital Signs/Intake and Output Vital Signs (last 24 hours): Temp Pulse Resp BP Pulse Ox 97.7 F 60 18 148/77 98 12/30/16 12:33 12/30/16 12:33 12/30/16 12:33 12/30/16 12:33 12/30/16 13:31 - Medications Medications: Current Medications Acetaminophen (Tylenol 325mg Tab) 650 mg PO Q6 PRN PRN Reason: Pain, moderate (4-7) Amlodipine Besylate (Norvasc) 10 mg PO DAILY [facility] Last Admin: 12/30/16 08:32 Dose: 10 mg Atorvastatin Calcium (Lipitor) 10 mg PO HS [facility] Last Admin: 12/29/16 22:35 Dose: 10 mg Clonidine HCl (Catapres) 0.1 mg PO BID [facility] Last Admin: 12/30/16 08:31 Dose: 0.1 mg Clopidogrel Bisulfate (Plavix) 75 mg PO DAILY [facility] Last Admin: 12/30/16 08:33 Dose: 75 mg Dextrose (Dextrose 50% Inj) 0 ml IV STAT PRN; Protocol PRN Reason: Hypoglycemia Protocol Dextrose (Glutose 15) 0 gm PO ONCE PRN; Protocol PRN Reason: Hypoglycemia Protocol Glipizide (Glucotrol) 5 mg PO BID [facility] Last Admin: 12/30/16 12:28 Dose: 5 mg Glucagon (Glucagen Diagnostic Kit) 0 mg IM STAT PRN; Protocol PRN Reason: Hypoglycemia Protocol Heparin Sodium (Porcine) (Heparin) 5,000 units SC Q12 [facility] PRN Reason: Protocol Last Admin: 12/30/16 08:27 Dose: 5,000 units Hydralazine HCl (Apresoline) 10 mg PO Q8H [facility] Last Admin: 12/30/16 05:05 Dose: 10 mg Insulin Human Regular (Humulin R) 0 units SC ACHS [facility] PRN Reason: Protocol Last Admin: 12/30/16 12:28 Dose: 3 units Olanzapine (Zyprexa) 10 mg PO DAILY [facility] Last Admin: 12/30/16 08:34 Dose: 10 mg Sertraline HCl (Zoloft) 100 mg PO DAILY [facility] Last Admin: 12/30/16 08:33 Dose: 100 mg - Labs Labs: 12/28/16 07:00 12/30/16 06:30 PT 10.4 Seconds (9.8-13.1) 12/26/16 16:20 INR 0.9 (0.9-1.2) 12/26/16 16:20 APTT 35.3 Seconds (25.6-37.1) 12/26/16 16:20 - Constitutional Appears: Non-toxic, No Acute Distress - Head Exam Head Exam: ATRAUMATIC, NORMAL INSPECTION, NORMOCEPHALIC - Eye Exam Eye Exam: EOMI, PERRL - ENT Exam ENT Exam: Mucous Membranes Moist - Respiratory Exam Respiratory Exam: Clear to Ausculation Bilateral, NORMAL BREATHING PATTERN. absent: Rales, Rhonchi, Wheezes, Respiratory Distress - Cardiovascular Exam Cardiovascular Exam: REGULAR RHYTHM, RRR, +S1, +S2, Murmur (Systolic, Grade II) - GI/Abdominal Exam GI & Abdominal Exam: Soft, Normal Bowel Sounds. absent: Distended, Tenderness - Extremities Exam Extremities Exam: Normal Capillary Refill. absent: Calf Tenderness, Pedal Edema - Neurological Exam Neurological Exam: Alert, Awake, CN II-XII Intact, Oriented x3 - Psychiatric Exam Psychiatric exam: Normal Affect, Normal Mood - Skin Skin Exam: Dry, Normal Color, Warm Assessment and Plan - Assessment and Plan (Free Text) Assessment: Patient is a 56 y/o F with PMH including HTN, NIDDM2, CKD and previous TIA admitted for symptomatic uncontrolled hypertension and acute on chronic kidney injury. Plan: Hypertension, uncontrolled -Patient had not been adherent with antihypertensive treatment upon admission -BP today in the 140s-160s systolic range -Renal duplex U/S ordered to evaluate for secondary causes of HTN, which returned within normal limits -Losartan discontinued on day 2 of admission due to associated declining of renal function (Cr increase from 1.7 > 2.3) -Continue amlodipine 10mg PO daily, Hydralazine 10mg Q8H -Clonidine 0.1mg PO BID started by Nephrolology yesterday -Will continue to monitor BP and adjust treatment accordingly Acute on Chronic Kidney Disease -BUN/Cr: 35/2.5 > 37/2.4 (BUN/Cr ratio: 15:1) -GFR: 25 (Stage 4) -Etiology possibly secondary to uncontrolled HTN vs diabetic nephropathy -Losartan, which was resumed at time of admission, was discontinued due to worsening of renal function (Cr from 1.7>2.3) -Renal Duplex did not detect any signs of renal artery stenosis -FeNa: 2.9% -Nephrology consult appreciated by Dr Lovelace, who added clonidine 0.1mg BID -Protein to creatinine ratio showed about 6.0 GM protein consistent with nephrotic syndrome proteinuria. Perhaps related to diabetic nephropathy -Hyperphosphatemia add phosphorus binder. Calcium acetate administered x1 dose -PTH elevated at 117 -25 OH Vit D markedly decreased at <12.8. Ergocalciferol 50,000u ordered for tomorrow. -Follow BMP Normocytic Anemia -Chronic, unknown etiology -H/H: 8.1/23.5 -Iron studies from 12/19/16: Iron 45, TIBC decreased at 241, Ferritin 52.9 -asymptomatic -retic count wnl -Colonoscopy done on 12/09/15 showed diverticulosis, 10 mm non-bleeding polyp in the sigmoid colon. -REGINALDO pending -complement wnl Mild fluid overload likely secondary to Mild CHF -Boderline Cardiomegaly seen on CXR -pro-BNP 3390/elevated. (No prior test for comparison) -Echo done on 12/2015 showed normal LV and normal EF -Echo repeated during this admission on 12/27 which detected a normal sized LV, with mild global hypokinesis of the LV and LVEF 45% NIDDM type 2 with hyperglycemia -Last HgbA1C: 8.1% on 12/19/16 -Glipizide 5 mg PO BID -Pt on low insulin sliding scale -Accucheck ACHS -Hypoglycemia precautions DVT prophylaxis -Heparin 5000u SC Q12h -SCDs
--- NOTE | 2016-12-30 23:27 | CP.PCM.PN ---
Subjective - Date & Time of Evaluation Date of Evaluation: 12/30/16 Time of Evaluation: 14:00 - Subjective Subjective: renal follow up note no events overnight PE; VSS nad heent normal op moist s1s2 present no resp distress abd soft skin normal ao times 3 A&P: SARA/ckd/dm/proteinuria/htn cr is stable bp continue current meds anemia stable, in november, iron sats 19% can give iv iron infusions. monitor UOP Objective - Vital Signs/Intake and Output Vital Signs (last 24 hours): Temp Pulse Resp BP Pulse Ox 98.3 F 62 18 119/72 96 12/30/16 21:09 12/30/16 21:23 12/30/16 21:09 12/30/16 21:23 12/30/16 21:09 Intake and Output: 12/30/16 12/31/16 18:59 06:59 Intake Total 1200 Balance 1200 - Medications Medications: Current Medications Acetaminophen (Tylenol 325mg Tab) 650 mg PO Q6 PRN PRN Reason: Pain, moderate (4-7) Amlodipine Besylate (Norvasc) 10 mg PO DAILY [facility] Last Admin: 12/30/16 08:32 Dose: 10 mg Atorvastatin Calcium (Lipitor) 10 mg PO HS [facility] Last Admin: 12/30/16 21:25 Dose: 10 mg Clonidine HCl (Catapres) 0.1 mg PO BID [facility] Last Admin: 12/30/16 17:17 Dose: 0.1 mg Clopidogrel Bisulfate (Plavix) 75 mg PO DAILY [facility] Last Admin: 12/30/16 08:33 Dose: 75 mg Dextrose (Dextrose 50% Inj) 0 ml IV STAT PRN; Protocol PRN Reason: Hypoglycemia Protocol Dextrose (Glutose 15) 0 gm PO ONCE PRN; Protocol PRN Reason: Hypoglycemia Protocol Ergocalciferol (Drisdol 50,000 Intl Units Cap) 1 cap PO Q7D [facility] Glipizide (Glucotrol) 5 mg PO BID [facility] Last Admin: 12/30/16 17:17 Dose: 5 mg Glucagon (Glucagen Diagnostic Kit) 0 mg IM STAT PRN; Protocol PRN Reason: Hypoglycemia Protocol Heparin Sodium (Porcine) (Heparin) 5,000 units SC Q12 [facility] PRN Reason: Protocol Last Admin: 12/30/16 21:22 Dose: 5,000 units Hydralazine HCl (Apresoline) 10 mg PO Q8H [facility] Last Admin: 12/30/16 21:23 Dose: 10 mg Insulin Human Regular (Humulin R) 0 units SC ACHS [facility] PRN Reason: Protocol Last Admin: 12/30/16 17:15 Dose: 3 units Olanzapine (Zyprexa) 10 mg PO DAILY [facility] Last Admin: 12/30/16 08:34 Dose: 10 mg Sertraline HCl (Zoloft) 100 mg PO DAILY [facility] Last Admin: 12/30/16 08:33 Dose: 100 mg - Labs Labs: 12/28/16 07:00 12/30/16 06:30 PT 10.4 Seconds (9.8-13.1) 12/26/16 16:20 INR 0.9 (0.9-1.2) 12/26/16 16:20 APTT 35.3 Seconds (25.6-37.1) 12/26/16 16:20
[2016-12-31] MEDS: Insulin Regular 100 units/ml SC SCH ×2 (06:30→12:15)
[2016-12-31 09:00] LABS: CALCIUM 8.5 mg/dL (8.4-10.2); PHOSPHOROUS 5.9 mg/dl (2.5-4.5); POTASSIUM 4.7 MMOL/L (3.6-5.0)
[2016-12-31] MEDS ORDERED: Ergocalciferol 50,000 Intl Units Cap PO SCH (09:00)
[2016-12-31 12:38] VITALS: BP 112/65; RESP 20; TEMP 98.7; O2SAT 95
--- NOTE | 2016-12-31 13:18 | CP.PCM.DIS ---
Provider - Provider Date of Admission: 12/27/16 17:16 Attending physician: Hawa Kenyon MD Time Spent in preparation of Discharge (in minutes): 30 Diagnosis - Discharge Diagnosis (1) Uncontrolled hypertension Status: Resolved (2) Acute kidney injury superimposed on chronic kidney disease Status: Acute Hospital Course - Lab Results Lab Results: Most Recent Lab Values WBC 6.1 K/uL (4.8-10.8) 12/28/16 07:00 RBC 2.79 Mil/uL (3.80-5.20) L 12/28/16 07:00 Hgb 8.3 g/dL (12.0-16.0) L 12/28/16 07:00 Hct 23.8 % (34.0-47.0) L 12/28/16 07:00 MCV 85.5 fl (81.0-99.0) 12/28/16 07:00 MCH 29.8 pg (27.0-31.0) 12/28/16 07:00 MCHC 34.9 g/dL (33.0-37.0) 12/28/16 07:00 RDW 14.8 % (11.5-14.5) H 12/28/16 07:00 Plt Count 323 K/uL (130-400) 12/28/16 07:00 MPV 7.5 fl (7.2-11.7) 12/26/16 16:20 Neut % (Auto) 66.4 % (50.0-75.0) 12/26/16 16:20 Lymph % (Auto) 21.1 % (20.0-40.0) 12/26/16 16:20 [place] % (Auto) 9.2 % (0.0-10.0) 12/26/16 16:20 Eos % (Auto) 2.7 % (0.0-4.0) 12/26/16 16:20 Baso % (Auto) 0.6 % (0.0-2.0) 12/26/16 16:20 Neut # 4.4 K/uL (1.8-7.0) 12/26/16 16:20 Lymph # 1.4 K/uL (1.0-4.3) 12/26/16 16:20 [place] # 0.6 K/uL (0.0-0.8) 12/26/16 16:20 Eos # 0.2 K/uL (0.0-0.7) 12/26/16 16:20 Baso # 0.0 K/uL (0.0-0.2) 12/26/16 16:20 Retic Count 1.4 % (0.5-1.5) D 12/27/16 07:15 PT 10.4 Seconds (9.8-13.1) 12/26/16 16:20 INR 0.9 (0.9-1.2) 12/26/16 16:20 APTT 35.3 Seconds (25.6-37.1) 12/26/16 16:20 Sodium 140 mmol/l (132-148) 12/31/16 08:44 Potassium 4.7 MMOL/L (3.6-5.0) 12/31/16 08:44 Chloride 105 mmol/L (98-107) 12/31/16 08:44 Carbon Dioxide 26 mmol/L (22-30) 12/31/16 08:44 Anion Gap 14 (10-20) 12/31/16 08:44 BUN 43 mg/dl (7-17) H 12/31/16 08:44 Creatinine 2.4 mg/dL (0.7-1.2) H 12/31/16 08:44 Est GFR ( Amer) 25 12/31/16 08:44 Est GFR (Non-Af Amer) 21 12/31/16 08:44 POC Glucose (mg/dL) 304 mg/dL (65-110) H 12/31/16 11:39 Random Glucose 101 mg/dL (65-105) 12/31/16 08:44 Calcium 8.5 mg/dL (8.4-10.2) 12/31/16 08:44 Phosphorus 5.9 mg/dl (2.5-4.5) H 12/31/16 08:44 Magnesium 1.7 MG/DL (1.6-2.3) 12/28/16 15:00 Total Bilirubin 0.4 mg/dl (0.2-1.3) 12/26/16 16:20 AST 30 U/L (14-36) 12/26/16 16:20 ALT 23 U/L (9-52) 12/26/16 16:20 Alkaline Phosphatase 100 U/L (38-126) 12/26/16 16:20 Troponin I 0.0150 ng/mL (0.00-0.120) 12/26/16 16:20 NT-Pro-B Natriuret Pep 3390 pg/ml (0-900) H 12/26/16 16:20 Total Protein 7.6 G/DL (6.3-8.2) 12/26/16 16:20 Albumin 3.7 g/dL (3.5-5.0) 12/26/16 16:20 Globulin 3.9 gm/dL (2.2-3.9) 12/26/16 16:20 Albumin/Globulin Ratio 0.9 (1.0-2.1) L 12/26/16 16:20 25-OH Vitamin D Total < 12.8 NG/ML (30.0-100.0) L 12/29/16 04:20 TSH 3rd Generation 1.06 mIU/ML (0.46-4.68) 12/26/16 16:20 PTH Intact Whole Molec 117 pg/mL (14-64) H 12/28/16 15:00 Urine Color Straw (YELLOW) 12/29/16 15:09 Urine Clarity Clear (Clear) 12/29/16 15:09 Urine pH 6.0 (5.0-8.0) 12/29/16 15:09 Ur Specific [place] 1.008 (1.003-1.030) 12/29/16 15:09 Urine Protein 100 mg/dL (NEGATIVE) 12/29/16 15:09 Urine Glucose (UA) 50 mg/dL (Normal) 12/29/16 15:09 Urine Ketones Negative mg/dL (NEGATIVE) 12/29/16 15:09 Urine Blood Small (NEGATIVE) 12/29/16 15:09 Urine Nitrate Negative (NEGATIVE) 12/29/16 15:09 Urine Bilirubin Negative (NEGATIVE) 12/29/16 15:09 Urine Urobilinogen 0.2-1.0 mg/dL (0.2-1.0) 12/29/16 15:09 Ur Leukocyte Esterase Neg [place]/uL (Negative) 12/29/16 15:09 Urine RBC (Auto) 3 /hpf (0-3) 12/29/16 15:09 Urine Microscopic WBC 2 /hpf (0-5) 12/29/16 15:09 Ur Squamous Epith Cells 2 /hpf (0-5) 12/26/16 22:18 Amorphous Sediment Few /ul (<OCC) H 12/26/16 22:18 Urine Bacteria Rare (<OCC) 12/26/16 22:18 Hyaline Casts 0 - 2 /hpf (0-2) 12/26/16 22:18 Ur Random Creatinine 42.4 mg/dL 12/29/16 15:09 U Random Total Protein 230.0 mg/dL (0.0-12.0) H 12/29/16 15:09 Ur Random Sodium 76 meq/L 12/29/16 06:53 Ur Random Potassium 31.4 mmol/L 12/29/16 06:53 REGINALDO Screen Negative (Negative) 12/28/16 15:00 Complement C3 129.0 mg/dL (88.0-165.0) 12/28/16 15:00 - Hospital Course Hospital Course: 56 y/o F with PMHx of HTN, DM type 2, TIA ( last episode on April,), depression, CKD was admitted for uncontrolled Hypertension and headaches. Complicated with acute kidney injury superimposed on chronic kidney disease. Nephrology followed patient throughout admission and medically optimized conditions. Patient was discharged home home safely with clearance and instructions followup with PCP on 01/03/2017 and needed for Nephrology visit. Medication list: Hydralazine 25 mg PO BID Amlodipine 10mg PO daily Vitamin D 50,000 units 1 cap PO every Sunday started this admission Glipizide 5 mg PO daily. Simvastatin 20 mg PO daily . Sertraline 50 mg Po daily Feosol 325 mg PO BID Discharge Exam - Head Exam Head Exam: ATRAUMATIC, NORMAL INSPECTION, NORMOCEPHALIC - Eye Exam Eye Exam: EOMI, PERRL - Respiratory Exam Respiratory Exam: Clear to PA & Lateral. absent: Rales, Rhonchi, Wheezes - Cardiovascular Exam Cardiovascular Exam: REGULAR RHYTHM, +S1, +S2 - GI/Abdominal Exam GI & Abdominal Exam: Normal Bowel Sounds, Soft. absent: Tenderness - Extremities Exam Additional comments: No pedal edema, no calf tenderness - Neurological Exam Neurological exam: Alert, Oriented x3 - Skin Skin Exam: Dry, Intact, Warm Discharge Plan - Discharge Medications Prescriptions: amLODIPine [Norvasc] 10 mg PO DAILY 30 Days #30 tab Ergocalciferol [Drisdol 50,000 Intl Units Cap] 1 cap PO Q7D 10 Days #10 cap Ferrous Sulfate [Feosol] 325 mg PO BID #60 tab hydrALAZINE [Apresoline] 25 mg PO BID #60 tab Simvastatin 20 mg PO HS 30 Days tablet - Follow Up Plan Condition: FAIR Disposition: HOME/ ROUTINE Patient education suggested?: Yes Instructions: Hypertension (DC), Hypertension (GEN) Additional Instructions: Follow up with your PCP Dr Conner at [facility] 01/03/17 at 1:20 pm. Will need to follow up with nephrology. Losartan was discontinued due to concerns about possible aggravation of renal function. Possible to restart slowly with close renal monitoring. Consider 24 hour urine collection for urine protein electrophoresis
[2016-12-31 13:19] VITALS: PULSE 69
[2017-01-01 08:30] LABS: TOTAL PROTEIN, SERUM 5.9 g/dL (6.1-8.1)
[2017-01-02 12:52] LABS: FREE KAPPA SERUM 124.7 mg/L (3.3-19.4)
[2017-01-02 21:17] LABS: BETA 1 GLOBULIN 0.4 g/dL (0.4-0.6); BETA 2 GLOBULIN 0.4 g/dL (0.2-0.5); GAMMA GLOBULIN 1.2 g/dL (0.8-1.7)
== END 2016-12-31 15:00 | disposition home or self-care (01) | DRG 683 ==
LOC: H.ER 15:15 → H.ERHOLD 17:23 → H.TEL 12-27 00:22 → OBSVTOIN 12-27 17:16
PROVIDERS: ADMIT Family Medicine Geriatric Medicine; ATTEND Family Medicine Geriatric Medicine
DX: I12.9 Hypertensive chronic kidney disease with stage 1 through stage 4 chronic kidney disease, or unspecified chronic kidney disease (principal); I67.4 Hypertensive encephalopathy; N17.9 Acute kidney failure, unspecified; E11.22 Type 2 diabetes mellitus with diabetic chronic kidney disease; G93.89 Other specified disorders of brain; D64.9 Anemia, unspecified; E78.00 Pure hypercholesterolemia, unspecified; N18.9 Chronic kidney disease, unspecified; Z79.02 Long term (current) use of antithrombotics/antiplatelets; Z79.84 Long term (current) use of oral hypoglycemic drugs; Z79.899 Other long term (current) drug therapy; Z86.73 Personal history of transient ischemic attack (TIA), and cerebral infarction without residual deficits; Z91.19 Patient's noncompliance with other medical treatment and regimen; F29 Unspecified psychosis not due to a substance or known physiological condition; F32.9 Major depressive disorder, single episode, unspecified; K57.90 Diverticulosis of intestine, part unspecified, without perforation or abscess without bleeding